=== PATIENT | female | born 1995 | race Caucasian/White ===

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

== ENCOUNTER → 2017-01-06 | Outpatient (CLI) | payer BC, OTHER ==
[2017-01-06 12:13] LABS: HEMATOCRIT 32.6 % (37.0-47.0); HEMOGLOBIN 11.3 g/dl (12.0-16.0); MEAN CELL VOLUME 88.6 fl (81.0-99.0); MEAN CORPUSCULAR HGB 30.7 pg (27.0-31.0); MEAN CORPUSCULAR HGB CONC 34.7 g/dl (33.0-37.0); MEAN PLATELET VOLUME 10.5 fl (9.6-12.3); RED BLOOD COUNT 3.68 10*6/uL (4.10-5.10); RED CELL DISTRI WIDTH 13.1 % (0-14.5); WHITE BLOOD COUNT 12.2 10*3/uL (4.8-10.8)
[2017-01-06 12:40] LABS: BUN 5 mg/dl (7-24); CHLORIDE 104 mmol/L (98-107); POTASSIUM 3.5 mmol/L (3.5-5.1); SODIUM 139 mmol/L (136-145)
== END | disposition home or self-care (01) ==
LOC: LAB 11:48
PROVIDERS: Internal Medicine Nephrology
DX: N13.30 Unspecified hydronephrosis (principal)

== ENCOUNTER 2018-03-27 19:00 | Emergency (ER) | payer BC, OTHER ==
[~2018-03-27] VITALS: Ht 154.9 cm; Wt 49.9 kg
[2018-03-27 19:02] VITALS: BP 99/66
== END 2018-03-27 20:20 | disposition home or self-care (01) ==
LOC: ED 19:00
DX: A08.4 Viral intestinal infection, unspecified (principal)

== ENCOUNTER 2019-03-25 11:11 | Emergency (ER) | payer BC, OTHER ==
[~2019-03-25] VITALS: Ht 154.9 cm; Wt 49.9 kg
[2019-03-25 11:12] VITALS: BP 122/66
[2019-03-25 13:01] LABS: BILIRUBIN 1+ (NEGATIVE); BLOOD 3+ (NEGATIVE); CLARITY CLOUDY (CLEAR); COLOR YELLOW (YELLOW); GLUCOSE NEGATIVE (NEGATIVE); KETONE NEGATIVE (NEGATIVE); LEUKO ESTERASE 1+ (NEGATIVE); NITRITE NEGATIVE (NEGATIVE); PH 5.5 (5.0-9.0); SPECIFIC GRAVITY 1.025 (1.005-1.030); UROBILINOGEN 0.2 E.U./dl (0.2-1.0)
[2019-03-25 13:08] LABS: BACTERIA 4+; EPITHELIAL CELLS 15-20; MUCOUS 1+; WBC 31-40 wbc/hpf (0-5)
[2019-03-25 14:03] LABS: HEMATOCRIT 41.9 % (37.0-47.0); HEMOGLOBIN 14.3 g/dl (12.0-16.0); MEAN CELL VOLUME 85.9 fl (81.0-99.0); MEAN CORPUSCULAR HGB 29.3 pg (27.0-31.0); MEAN CORPUSCULAR HGB CONC 34.1 g/dl (33.0-37.0); MEAN PLATELET VOLUME 10.2 fl (9.6-12.3); PLATELET COUNT AUTOMATED 308 10*3/uL (130-400); RED BLOOD COUNT 4.88 10*6/uL (4.10-5.10); RED CELL DISTRI WIDTH 12.7 % (0-14.5); WHITE BLOOD COUNT 10.7 10*3/uL (4.8-10.8)
[2019-03-25 14:20] LABS: ALBUMIN 4.3 gm/dl (3.1-4.5); ALKALINE PHOSPHATASE 56 U/L (45-117); BUN 11 mg/dl (7-24); CHLORIDE 109 mmol/L (98-107); CREATININE 0.84 mg/dL (0.55-1.02); POTASSIUM 3.8 mmol/L (3.5-5.1); SGOT/AST 14 IU/L (3-35); SGPT/ALT 24 U/L (12-78); SODIUM 141 mmol/L (136-145); TOTAL PROTEIN 8.2 gm/dL (6.4-8.2)
[2019-03-25 14:26] LABS: TOTAL CELLS COUNTED 100 #CELLS
[2019-03-25 14:27] LABS: PLATELET SUFFICIENCY NORMAL (NORMAL)
[2019-03-25] MEDS ORDERED: ZOFRAN4 MG PO (14:54)
== END 2019-03-25 15:44 | disposition home or self-care (01) ==
LOC: ED 11:11
PROVIDERS: Emergency Medicine
DX: R11.2 Nausea with vomiting, unspecified (principal); R19.7 Diarrhea, unspecified; K21.9 Gastro-esophageal reflux disease without esophagitis

== ENCOUNTER 2019-08-02 03:30 | Emergency (ER) | payer BC, OTHER ==
[~2019-08-02] VITALS: Ht 154.9 cm; Wt 49.9 kg
[2019-08-02 04:04] LABS: BASO % 0.2 % (0.0-1.0); EOS # 0.1 10*3/uL (0.0-0.4); EOS % 0.6 % (1.0-4.0); HEMATOCRIT 36.4 % (37.0-47.0); LYMPH # 2.6 10*3/uL (1.3-4.4); LYMPH % 14.8 % (27.0-41.0); MEAN CELL VOLUME 86.7 fl (81.0-99.0); MEAN CORPUSCULAR HGB 29.5 pg (27.0-31.0); MEAN CORPUSCULAR HGB CONC 34.1 g/dl (33.0-37.0); MEAN PLATELET VOLUME 10.6 fl (9.6-12.3); MONO # 0.7 10*3/uL (0.1-1.0); NEUT # 14.2 10*3/uL (2.3-7.9); NEUT % 80.1 % (47.0-73.0); PLATELET COUNT AUTOMATED 264 10*3/uL (130-400); RED CELL DISTRI WIDTH 12.5 % (0-14.5); WHITE BLOOD COUNT 17.8 10*3/uL (4.8-10.8)
[2019-08-02 04:21] LABS: ALBUMIN 3.9 gm/dl (3.1-4.5); ALKALINE PHOSPHATASE 43 U/L (45-117); BUN 7 mg/dl (7-24); CHLORIDE 106 mmol/L (98-107); CREATININE 0.78 mg/dL (0.55-1.02); POTASSIUM 3.3 mmol/L (3.5-5.1); SGOT/AST 14 IU/L (3-35); SGPT/ALT 19 U/L (12-78); SODIUM 137 mmol/L (136-145); TOTAL PROTEIN 7.3 gm/dL (6.4-8.2)
[2019-08-02 04:24] LABS: BILIRUBIN NEGATIVE (NEGATIVE); BLOOD NEGATIVE (NEGATIVE); CLARITY SL CLOUDY (CLEAR); COLOR YELLOW (YELLOW); GLUCOSE NEGATIVE (NEGATIVE); KETONE NEGATIVE (NEGATIVE); LEUKO ESTERASE NEGATIVE (NEGATIVE); NITRITE NEGATIVE (NEGATIVE); UROBILINOGEN 0.2 E.U./dl (0.2-1.0)
[2019-08-02 04:48] LABS: BACTERIA TRACE; EPITHELIAL CELLS 21-30
[2019-08-02] MEDS ORDERED: TRAMADOL HCL50 MG PO (05:19)
[2019-08-02] MEDS ORDERED: IBU800 MG PO (05:19)
[2019-08-02] MEDS ORDERED: FLAGYL500 MG PO (05:19)
[2019-08-02] MEDS ORDERED: DOXYCYCLINE HY150 M2 PO (05:19)
[2019-08-02 05:34] VITALS: BP 110/62
== END 2019-08-02 06:05 | disposition home or self-care (01) ==
LOC: ED 03:30
PROVIDERS: Emergency Medicine
DX: N73.9 Female pelvic inflammatory disease, unspecified (principal); Z30.432 Encounter for removal of intrauterine contraceptive device; Z79.899 Other long term (current) drug therapy

== ENCOUNTER 2021-07-23 11:12 | Emergency (ER) | payer OTHER ==
[~2021-07-23] VITALS: Wt 49.9 kg
[~2021-07-23 11:12] MED LIST changes: +DOXYCYCLINE HY150 M2 PO; +FLAGYL500 MG PO; +IBU800 MG PO; +TRAMADOL HCL50 MG PO
[2021-07-23 11:18] VITALS: BP 107/85
[2021-07-23 11:39] LABS: BASO % 0.2 % (0.0-1.0); EOS # 0.3 10*3/uL (0.0-0.4); EOS % 2.3 % (1.0-4.0); HEMATOCRIT 41.5 % (37.0-47.0); LYMPH # 0.7 10*3/uL (1.3-4.4); LYMPH % 5.1 % (27.0-41.0); MEAN CELL VOLUME 83.7 fl (81.0-99.0); MEAN CORPUSCULAR HGB CONC 34.7 g/dl (33.0-37.0); MEAN PLATELET VOLUME 10.4 fl (9.6-12.3); MONO # 0.5 10*3/uL (0.1-1.0); MONO % 3.8 % (3.0-9.0); NEUT # 11.7 10*3/uL (2.3-7.9); NEUT % 88.4 % (47.0-73.0); PLATELET COUNT AUTOMATED 240 10*3/uL (130-400); RED BLOOD COUNT 4.96 10*6/uL (4.10-5.10); RED CELL DISTRI WIDTH 12.5 % (0-14.5); WHITE BLOOD COUNT 13.2 10*3/uL (4.8-10.8)
[2021-07-23 11:56] LABS: ALKALINE PHOSPHATASE 86 U/L (45-117); BUN 16 mg/dl (7-24); CHLORIDE 112 mmol/L (98-107); CREATININE 0.68 mg/dL (0.55-1.02); LIPASE 217 U/L (73-393); POTASSIUM 3.9 mmol/L (3.5-5.1); SGOT/AST 15 IU/L (3-35); SGPT/ALT 22 U/L (12-78); SODIUM 140 mmol/L (136-145); TOTAL PROTEIN 8.1 gm/dL (6.4-8.2)
[2021-07-23] MEDS ORDERED: ZOFRAN4 MG PO (14:32)
== END 2021-07-23 14:58 | disposition home or self-care (01) ==
LOC: ED 11:12
PROVIDERS: Physician Assistant
DX: R11.2 Nausea with vomiting, unspecified (principal); R10.9 Unspecified abdominal pain; R19.7 Diarrhea, unspecified